=== PATIENT | male | born 1945 | race African-American/Black ===

== ENCOUNTER 2016-07-03 17:21 | Emergency (ER) | payer MEDICARE ==
[~2016-07-03] VITALS: Ht 167.6 cm; Wt 78.0 kg
[~2016-07-03 17:21] MED LIST: HYDR-971 PO; IBUP200T43 PO; LEVO500T38 PO
--- NOTE | 2016-07-03 17:26 | PHYS DOC ---
Past Medical History Past Medical History: Diabetes-Type II, Hypertension Past Surgical History: Other Additional Past Surgical Histo: LEFT ARM Alcohol Use: None Drug Use: None Adult General Chief Complaint Chief Complaint: HEADACHE HPI HPI Patient is a 71 year old male presenting to the emergency department for evaluation of sharp shooting headache that has been going on for the past 3-4 days. Patient says that the pain starts in his right occipital area and feels like an electric shock shooting forward to his post auricular area. He says the pain is intense and can make him feel like he needs to sit down but he denies any vision changes or nausea vomiting fevers chills unilateral weakness numbness tingling or change in his gait. Patient is pain-free in between episodes he says that he is pain-free currently. Review of Systems Review of Systems Constitutional: Denies fever or chills [] Eyes: Denies change in visual acuity, redness, or eye pain [] HENT: Denies nasal congestion or sore throat [] Respiratory: Denies cough or shortness of breath [] Cardiovascular: No additional information not addressed in HPI [] GI: Denies abdominal pain, nausea, vomiting, bloody stools or diarrhea [] : Denies dysuria or hematuria [] Musculoskeletal: Denies back pain or joint pain [] Integument: Denies rash or skin lesions [] Neurologic: + headache. No focal weakness or sensory changes [] Current Medications Current Medications Current Medications Medications (Trade) Dose Ordered Sig/Francesco Start Time Stop Time Status Last Admin Dose Admin Dexamethasone Sodium Phosphate (Decadron) 10 mg 1X ONCE 07/03/16 18:30 07/03/16 18:31 DC 07/03/16 18:34 10 MG Ketorolac Tromethamine (Toradol) 30 mg 1X ONCE 07/03/16 18:30 07/03/16 18:31 DC 07/03/16 18:38 30 MG Allergies Allergies Allergies Coded Allergies Type Severity Reaction Last Updated Verified No Known Drug Allergies 06/21/15 No Physical Exam Physical Exam Constitutional: Well developed, well nourished, no acute distress, non-toxic appearance. [] HENT: Normocephalic, atraumatic, bilateral external ears normal, oropharynx moist, no oral exudates, nose normal. Pain is reproducible at his right occipital area and I palpate pain up to his post auricular area. No obvious rash or deformity noted. Eyes: PERRLA, EOMI, conjunctiva normal, no discharge. [] Neck: Normal range of motion, no tenderness, supple, no stridor. [] Cardiovascular:Heart rate regular rhythm, no murmur [] Lungs & Thorax: Bilateral breath sounds clear to auscultation [] Abdomen: Bowel sounds normal, soft, no tenderness, no masses, no pulsatile masses. [] Skin: Warm, dry, no erythema, no rash. [] Back: No tenderness, no CVA tenderness. [] Extremities: No tenderness, no cyanosis, no clubbing, ROM intact, no edema. [] Neurologic: Alert and oriented X 3, normal motor function, normal sensory function, no focal deficits noted. [] Current Patient Data Vital Signs Vital Signs Date Time Temp Pulse Resp B/P Pulse Ox O2 Delivery O2 Flow Rate FiO2 07/03/16 18:29 90 140/77 95 Room Air 07/03/16 17:22 98.7 18 98.7 Lab Values Laboratory Tests Test 07/03/16 17:40 White Blood Count 6.7x10^3/uL (4.0-11.0) Red Blood Count 4.26x10^6/uL (4.30-5.70) L Hemoglobin 12.5g/dL (13.0-17.5) L Hematocrit 37.8% (39.0-53.0) L Mean Corpuscular Volume 89fL (79-100) Mean Corpuscular Hemoglobin 29pg (25-35) Mean Corpuscular Hemoglobin Concent 33g/dL (31-37) Red Cell Distribution Width 14.7% (11.5-14.5) H Platelet Count 228x10^3/uL (140-400) Neutrophils (%) (Auto) 79% (31-73) H Lymphocytes (%) (Auto) 13% (24-48) L Monocytes (%) (Auto) 7% (0-9) Eosinophils (%) (Auto) 1% (0-3) Basophils (%) (Auto) 1% (0-3) Neutrophils # (Auto) 5.3x10^3uL (1.8-7.7) Lymphocytes # (Auto) 0.9x10^3/uL (1.0-4.8) L Monocytes # (Auto) 0.5x10^3/uL (0.0-1.1) Eosinophils # (Auto) 0.0x10^3/uL (0.0-0.7) Basophils # (Auto) 0.0x10^3/uL (0.0-0.2) Erythrocyte Sedimentation Rate 60 (0-15) H Sodium Level 137mmol/L (136-145) Potassium Level 3.7mmol/L (3.5-5.1) Chloride Level 103mmol/L (98-107) Carbon Dioxide Level 25mmol/L (21-32) Anion Gap 9 (6-14) Blood Urea Nitrogen 21mg/dL (8-26) Creatinine 1.3mg/dL (0.7-1.3) Estimated GFR (Cockcroft-Gault) 66.0 BUN/Creatinine Ratio 16 (6-20) Glucose Level 176mg/dL (70-99) H Calcium Level 8.7mg/dL (8.5-10.1) Total Bilirubin 0.3mg/dL (0.2-1.0) Aspartate Amino Transferase (AST) 14U/L (15-37) L Alanine Aminotransferase (ALT) 19U/L (16-63) Alkaline Phosphatase 70U/L (46-116) C-Reactive Protein, Quantitative 25.0mg/L (0-3.3) H Total Protein 7.3g/dL (6.4-8.2) Albumin 3.0g/dL (3.4-5.0) L Albumin/Globulin Ratio 0.7 (1.0-1.7) L Laboratory Tests 07/03/16 17:40 Laboratory Tests 07/03/16 17:40 EKG EKG [] Radiology/Procedures Radiology/Procedures PROCEDURE CT head without intravenous contrast. HISTORY Right occipital mastoid headache. TECHNIQUE Axial images are obtained of the head from the skull base through the vertex without IV contrast Exposure: One or more of the following individualized dose reduction techniques were utilized for this examination: 1. Automated exposure control. 2. Adjustment of the mA and/or kV according to patient size. 3. Use of iterative reconstruction technique. COMPARISON None. FINDINGS The ventricles are appropriate in size, shape, and location for the patient's age.No obvious intracranial mass, mass-effect, midline shift, hemorrhage or obvious acute infarction is identified.Basilar cisterns are patent. Bone windows demonstrate no acute calvarial abnormality.The visualized paranasal sinuses appear clear. Mastoid air cells appear clear. IMPRESSION No acute intracranial process. Please note that CT can be relatively insensitive to acute ischemic infarction for up to 24 hours after symptom onset. Electronically signed by: Oscar Garcia MD (Jul 03, 2016 18:34:39) DICTATED and SIGNED BY: OSCAR GARCIA MD DATE: 07/03/161833 Course & Med Decision Making Course & Med Decision Making Patient with nonspecific headache that is most likely some sort of neuropathic type pain given the description of sharp shooting pain that radiates comes and goes and lasts for seconds at a time. Patient's CRP is elevated significantly likely some sort of inflammatory process. CT is negative and he has no neck stiffness fevers chills photophobia vision changes. I do not think this is temporal arteritis as he has no pain over his temples. Patient was given a dose of Decadron and Toradol in the emergency department he had no headache during his entire time in the emergency department. I will start him on a dose of gabapentin and then have him follow with the neurologist and have him come back to the ER sooner with any worsening pain fevers vomiting or vaginal concerns. Patient aware and agreeable with plan for discharge and verbalized understanding of the above instructions. Dragon Disclaimer Dragon Disclaimer This electronic medical record was generated, in whole or in part, using a voice recognition dictation system. Departure Departure Impression: Primary Impression: Headache Additional Impression: Neuropathic pain Disposition: 01 HOME, SELF-CARE Condition: GOOD Referrals: VALENTINO RDZ MD Patient Instructions: General Headache Without Cause Additional Instructions: You can take 400 mg of ibuprofen every 6 hours for headache. The Patient should be dosed that she take one pill on day one and 2 pills on day 2 and 3 pills on day 3 and then 3 forward. He should follow with a neurologist as soon as possible and come back to the ER sooner with any worsening pain or fevers or vomiting or general concerns. Scripts Hydrocodone/Apap 5-325 (Kre[place] 5-325 Tablet)1 Each Tablet1 Tab PO PRN Q6HRS PRN PAIN #14 TAB Ref 0 Prov:JOSTIN MELENDREZ DO 07/03/16 Gabapentin 300 Mg [id number] Mg PO TID #90 CAP Prov:JOSTIN MELENDREZ DO 07/03/16 Problem Qualifiers Primary Impression: Headache Headache type: unspecified Headache chronicity pattern: acute headache Intractability: not intractable Qualified Code: R51 - Headache JOSTIN MELENDREZ DO Jul 03, 2016 17:26
[2016-07-03 17:51] LABS: BASO % 1 % (0-3); EOS % 1 % (0-3); HEMATOCRIT 37.8 % (39.0-53.0); HEMOGLOBIN 12.5 g/dL (13.0-17.5); LYMPH # 0.9 x10^3/uL (1.0-4.8); LYMPH % 13 % (24-48); MEAN CORPUSCULAR HEMOGLOBIN 29 pg (25-35); MEAN CORPUSCULAR HGB CONC 33 g/dL (31-37); MEAN CORPUSCULAR VOLUME 89 fL (79-100); MONO % 7 % (0-9); NEUT % 79 % (31-73); PLATELET COUNT 228 x10^3/uL (140-400); RED BLOOD COUNT 4.26 x10^6/uL (4.30-5.70); RED CELL DISTRIBUTION WIDTH 14.7 % (11.5-14.5); WHITE BLOOD COUNT 6.7 x10^3/uL (4.0-11.0)
[2016-07-03 18:05] LABS: CALCIUM 8.7 mg/dL (8.5-10.1); CREATININE 1.3 mg/dL (0.7-1.3); POTASSIUM 3.7 mmol/L (3.5-5.1)
[2016-07-03 18:10] LABS: ALBUMIN/GLOBULIN RATIO 0.7 (1.0-1.7); TOTAL BILIRUBIN 0.3 mg/dL (0.2-1.0); TOTAL PROTEIN 7.3 g/dL (6.4-8.2)
[2016-07-03 18:29] VITALS: BP 140/77
[2016-07-03] MEDS ORDERED: KETOROLAC TROMETHAMINE 30 MG/ML INJ. IV ONE (18:30)
[2016-07-03] MEDS ORDERED: DEXAMETHASONE SOD PHOS 20 MG/5 ML VIAL. IV ONE (18:30)
--- NOTE | 2016-07-03 18:36 | RAD ---
PROCEDURE CT head without intravenous contrast. HISTORY Right occipital mastoid headache. TECHNIQUE Axial images are obtained of the head from the skull base through the vertex without IV contrast Exposure: One or more of the following individualized dose reduction techniques were utilized for this examination: 1. Automated exposure control. 2. Adjustment of the mA and/or kV according to patient size. 3. Use of iterative reconstruction technique. COMPARISON None. FINDINGS The ventricles are appropriate in size, shape, and location for the patient's age.No obvious intracranial mass, mass-effect, midline shift, hemorrhage or obvious acute infarction is identified.Basilar cisterns are patent. Bone windows demonstrate no acute calvarial abnormality.The visualized paranasal sinuses appear clear. Mastoid air cells appear clear. IMPRESSION No acute intracranial process. Please note that CT can be relatively insensitive to acute ischemic infarction for up to 24 hours after symptom onset. Electronically signed by: Oscar Garcia MD (Jul 03, 2016 18:34:39)
[2016-07-03] MEDS ORDERED: HYDR-971 PO (18:48)
[2016-07-03] MEDS ORDERED: GABA-586 PO (18:48)
== END 2016-07-03 18:58 | disposition home or self-care (01) ==
LOC: ER 17:21
DX: R51 Headache (principal); G58.8 Other specified mononeuropathies; E11.9 Type 2 diabetes mellitus without complications; I10 Essential (primary) hypertension
CPT/HCPCS: 36415; 70450; 80053; 85027; 85651; 86140; 96374; 96375; 99285; J1100; J1885

== ENCOUNTER → 2016-07-20 | Outpatient (CLI) | payer MEDICARE ==
[2016-07-03 18:29] VITALS: BP 140/77
[~2016-07-20] MED LIST changes: +GABA-586 PO
[2016-07-21 12:16] LABS: BARBITURATES NEG (NEG); BENZODIAZEPINES NEG (NEG); CANNABINOIDS NEG (NEG); COCAINE NEG (NEG); METHADONE NEG (NEG); OPIATES NEG (NEG); PHENCYCLIDINE NEG (NEG)
== END | disposition home or self-care (01) ==
LOC: LAB 16:41
PROVIDERS: ATTEND Psychiatry & Neurology Neurology
DX: R51 Headache (principal)
CPT/HCPCS: 36415; 85651; G0481

== ENCOUNTER → 2016-08-18 | Outpatient (CLI) | payer MEDICARE ==
[~2016-08-18] MED LIST changes: -LEVO500T38 PO; +LEVO500T59 PO
[2016-08-19 04:21] LABS: RHEUMATOID FACTOR 26.3 IU/mL (0.0-13.9)
== END | disposition home or self-care (01) ==
LOC: LAB 15:00
PROVIDERS: ATTEND Psychiatry & Neurology Neurology
DX: R51 Headache (principal)
CPT/HCPCS: 36415; 86141; 86431

== ENCOUNTER → 2016-12-02 | Outpatient (CLI) | payer MEDICARE ==
[~2016-12-02] MED LIST changes: +CIPR500T PO; +IBUP-1060 PO; -IBUP200T43 PO; +IBUP200T44 PO
--- NOTE | 2016-12-02 12:02 | RAD ---
EXAM: CT cervical spine without contrast. HISTORY: Neck pain. TECHNIQUE: Computed tomography of the cervical spine was performed without intravenous contrast. COMPARISON: None. FINDINGS: Alignment is maintained. There is mild osteoarthritis at C1-2. No fractures are identified. Degenerative disc disease is mild to moderate from C4 through C6 and mild at C3-4 and C6-7. There is no prevertebral soft tissue swelling. At C2-3, there is a small posterior disc bulge. Uncovertebral osteoarthritis is mild on the right greater than left. Right foraminal stenosis is mild. At C3-4, there is a moderate posterior disc bulge. Uncovertebral osteoarthritis is moderate on the left greater than right. Foraminal stenosis is moderate on the left and mild on the right. At C4-5, there is a moderate posterior disc-osteophyte complex. Central canal stenosis is at least mild. Uncovertebral osteoarthritis is moderate to severe on the right greater than left. Foraminal stenosis is moderate to severe on the right and moderate on the left. At C5-6, there is a small posterior disc-osteophyte complex. Central canal stenosis appears mild. Uncovertebral osteoarthritis is moderate to severe on the right greater than left. Foraminal stenosis is moderate to severe on the right and moderate on left. At C6-7, uncovertebral osteoarthritis is moderate to severe on the left. Foraminal stenosis is moderate on the left. IMPRESSION: 1. 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 Central canal stenosis is at least mild from C4 through C6. MRI could further assess stenosis if there is persistent concern. 2. Degenerative disc disease is mild to moderate from C4 through C6 and mild at C3-4 and C6-7. *One or more of the following individualized dose reduction techniques were utilized for this examination: 1. Automated exposure control. 2. Adjustment of the mA and/or kV according to patient size. 3. Use of iterative reconstruction technique.
== END | disposition home or self-care (01) ==
LOC: CT 10:31
PROVIDERS: ATTEND Psychiatry & Neurology Neurology
DX: M48.02 Spinal stenosis, cervical region (principal); M47.892 Other spondylosis, cervical region; M50.323 Other cervical disc degeneration at C6-C7 level; M50.122 Cervical disc disorder at C5-C6 level with radiculopathy; M50.121 Cervical disc disorder at C4-C5 level with radiculopathy
CPT/HCPCS: 72125

== ENCOUNTER 2016-12-07 10:35 | Emergency (ER) | payer MEDICARE ==
[~2016-12-07] VITALS: Ht 170.2 cm; Wt 78.9 kg
[~2016-12-07 10:35] MED LIST changes: -CIPR500T PO; -IBUP-1060 PO
--- NOTE | 2016-12-07 11:01 | PHYS DOC ---
Past Medical History Past Medical History: Diabetes-Type II, Hypertension Past Surgical History: Other Additional Past Surgical Histo: LEFT ARM Alcohol Use: None Drug Use: None Adult General Chief Complaint Chief Complaint: TESTICULAR PAIN OR INJURY HPI HPI Patient is a 71 year old male presents the ED complaining of left testicular swelling 4 days. States he had a previous episode of testicular swelling a few years ago that resolved after treatment. Describes the pain as sharp. Rates the pain as 8 out of 10. Denies dysuria, hematuria, penile discharge, STD exposure, abdominal pain, nausea/vomiting, dizziness, weakness, chest pain or shortness of breath. Review of Systems Review of Systems Constitutional: Denies fever or chills [] Eyes: Denies change in visual acuity, redness, or eye pain [] HENT: Denies nasal congestion or sore throat [] Respiratory: Denies cough or shortness of breath [] Cardiovascular: No additional information not addressed in HPI [] GI: Denies abdominal pain, nausea, vomiting, bloody stools or diarrhea [] : Denies dysuria or hematuria [] Musculoskeletal: Denies back pain or joint pain [] Integument: Denies rash or skin lesions [] Neurologic: Denies headache, focal weakness or sensory changes [] Endocrine: Denies polyuria or polydipsia [] Current Medications Current Medications Current Medications Medications (Trade) Dose Ordered Sig/Francesco Start Time Stop Time Status Last Admin Dose Admin Ceftriaxone Sodium 50 ml @ 100 mls/hr 1X ONCE 12/07/16 12:15 12/07/16 12:42 DC 12/07/16 12:06 100 MLS/HR Morphine Sulfate 2 mg 1X ONCE 12/07/16 11:15 12/07/16 11:16 DC 12/07/16 11:23 2 MG Ondansetron HCl (Zofran) 4 mg 1X ONCE 12/07/16 11:15 12/07/16 11:16 DC 12/07/16 11:23 4 MG Potassium Chloride (Klor-Con) 40 meq 1X ONCE 12/07/16 12:15 12/07/16 12:16 DC 12/07/16 12:07 40 MEQ Allergies Allergies Allergies Coded Allergies Type Severity Reaction Last Updated Verified No Known Drug Allergies 06/21/15 No Physical Exam Physical Exam Constitutional: Well developed, well nourished, no acute distress, non-toxic appearance. [] HENT: Normocephalic, atraumatic, bilateral external ears normal, oropharynx moist, no oral exudates, nose normal. [] Eyes: PERRLA, EOMI, conjunctiva normal, no discharge. [] Neck: Normal range of motion, no tenderness, supple, no stridor. [] Cardiovascular:Heart rate regular rhythm, no murmur [] Lungs & Thorax: Bilateral breath sounds clear to auscultation [] Abdomen: Bowel sounds normal, soft, no tenderness, no masses, no pulsatile masses. : LEFT SCROTAL SWELLING AND LEFT TESTICULAR TENDERNESS. [] Skin: Warm, dry, no erythema, no rash. [] Back: No tenderness, no CVA tenderness. [] Extremities: No tenderness, no cyanosis, no clubbing, ROM intact, no edema. [] Neurologic: Alert and oriented X 3, normal motor function, normal sensory function, no focal deficits noted. [] Psychologic: Affect normal, judgement normal, mood normal. [] Current Patient Data Vital Signs Vital Signs Date Time Temp Pulse Resp B/P (MAP) Pulse Ox O2 Delivery O2 Flow Rate FiO2 12/07/16 12:10 80 20 109/47 (67) 100 12/07/16 10:49 97.7 Room Air 97.7 Lab Values Laboratory Tests Test 12/07/16 11:00 12/07/16 11:20 Urine Collection Type Unknown Urine Color Yellow Urine Clarity Clear Urine pH 6.0 Urine Specific [place] 1.020 Urine Protein Negative mg/dL (NEG-TRACE) Urine Glucose (UA) Negative mg/dL (NEG) Urine Ketones (Stick) Negative mg/dL (NEG) Urine Blood Negative (NEG) Urine Nitrite Positive (NEG) Urine Bilirubin Negative (NEG) Urine Urobilinogen Dipstick 1.0 mg/dL (0.2 mg/dL) Urine Leukocyte Esterase Large (NEG) Urine RBC Occ /HPF (0-2) Urine WBC >40 /HPF (0-4) Urine Squamous Epithelial Cells Few /LPF Urine Bacteria Mod /HPF (0-FEW) Urine Mucus /LPF White Blood Count 4.3 x10^3/uL (4.0-11.0) Red Blood Count 4.26 x10^6/uL (4.30-5.70) L Hemoglobin 12.5 g/dL (13.0-17.5) L Hematocrit 37.3 % (39.0-53.0) L Mean Corpuscular Volume 87 fL (79-100) Mean Corpuscular Hemoglobin 29 pg (25-35) Mean Corpuscular Hemoglobin Concent 33 g/dL (31-37) Red Cell Distribution Width 14.0 % (11.5-14.5) Platelet Count 245 x10^3/uL (140-400) Sodium Level 140 mmol/L (136-145) Potassium Level 3.1 mmol/L (3.5-5.1) L Chloride Level 104 mmol/L (98-107) Carbon Dioxide Level 30 mmol/L (21-32) Anion Gap 6 (6-14) Blood Urea Nitrogen 18 mg/dL (8-26) Creatinine 1.0 mg/dL (0.7-1.3) Estimated GFR (Cockcroft-Gault) 89.4 BUN/Creatinine Ratio 18 (6-20) Glucose Level 56 mg/dL (70-99) L Calcium Level 8.6 mg/dL (8.5-10.1) Total Bilirubin 0.3 mg/dL (0.2-1.0) Aspartate Amino Transferase (AST) 17 U/L (15-37) Alanine Aminotransferase (ALT) 24 U/L (16-63) Alkaline Phosphatase 69 U/L (46-116) Total Protein 7.4 g/dL (6.4-8.2) Albumin 3.1 g/dL (3.4-5.0) L Albumin/Globulin Ratio 0.7 (1.0-1.7) L Laboratory Tests 12/07/16 11:20 Laboratory Tests 12/07/16 11:20 EKG EKG [] Radiology/Procedures Radiology/Procedures PROCEDURE: TESTICULAR/SCROTUM Scrotal ultrasound, 12/07/2016: History: Left testicular pain and swelling The right testicle measures 5.0 x 2.6 x 2.1 cm while the left testicle measures 4.3 x 2.9 x 2.5 cm. There is symmetric blood flow within the testicles. No testicular mass is seen. Several small epididymal cysts are noted on the left. The largest of these measures 6 mm. The right epididymis is unremarkable. There are small bilateral hydroceles, left larger than right. There is a small amount of echogenic debris within the hydroceles. IMPRESSION: 1. No testicular abnormality is detected. 2. Small left epididymal cyst. 3. Small bilateral hydroceles.[] Course & Med Decision Making Course & Med Decision Making Pertinent Labs and Imaging studies reviewed. (See chart for details) []Discussed labs and imaging with patient. Patient's pain improved. Vital stable , no acute distress. Patient treated with Rocephin in ED. Will treat outpatient with Cipro and Candler which he has been treated with in the past. Discussed follow-up with patient. Discussed reasons to return to the ED. Patient understands and agrees with plan. Dragon Disclaimer Dragon Disclaimer This electronic medical record was generated, in whole or in part, using a voice recognition dictation system. Departure Departure Impression: Primary Impression: Urinary tract infection Disposition: 01 HOME, SELF-CARE Condition: STABLE Referrals: UNKNOWN PCP NAME (PCP) LÁZARO ERAZO MD Patient Instructions: Epididymitis, Urinary Tract Infection Scripts Ibuprofen (IBUPROFEN) 800 Mg Tablet 800 MG PO PRN Q6HRS Y for INFLAMMATION, #20 TAB Prov: MARIZA VÁZQUEZ 12/07/16 Hydrocodone/Apap 5-325 (NORCO 5-325 TABLET) 1 Each Tablet 1 TAB PO TID, #8 TAB Prov: MARIZA VÁZQUEZ 12/07/16 Ciprofloxacin Hcl (CIPROFLOXACIN HCL) 500 Mg Tablet 1 TAB PO BID, #20 TAB Prov: MARIZA VÁZQUEZ 12/07/16 MARIZA VÁZQUEZ Dec 07, 2016 11:01
[2016-12-07] MEDS ORDERED: MORPHINE SULFATE 4 MG/ML DISP.SYRIN. IV ONE (11:15)
[2016-12-07] MEDS ORDERED: ONDANSETRON PF 4 MG/2 ML VIAL. IV ONE (11:15)
[2016-12-07 11:22] LABS: BILIRUBIN,URINE NEGATIVE (NEG); GLUCOSE,URINE NEGATIVE (NEG); NITRITE,URINE POSITIVE (NEG); PROTEIN,URINE NEGATIVE (NEG-TRACE)
[2016-12-07 11:23] LABS: HEMATOCRIT 37.3 % (39.0-53.0); HEMOGLOBIN 12.5 g/dL (13.0-17.5); RED BLOOD COUNT 4.26 x10^6/uL (4.30-5.70); WHITE BLOOD COUNT 4.3 x10^3/uL (4.0-11.0)
--- NOTE | 2016-12-07 11:27 | RAD ---
Scrotal ultrasound, 12/07/2016: History: Left testicular pain and swelling The right testicle measures 5.0 x 2.6 x 2.1 cm while the left testicle measures 4.3 x 2.9 x 2.5 cm. There is symmetric blood flow within the testicles. No testicular mass is seen. Several small epididymal cysts are noted on the left. The largest of these measures 6 mm. The right epididymis is unremarkable. There are small bilateral hydroceles, left larger than right. There is a small amount of echogenic debris within the hydroceles. IMPRESSION: 1. No testicular abnormality is detected. 2. Small left epididymal cyst. 3. Small bilateral hydroceles.
[2016-12-07 11:33] LABS: CALCIUM 8.6 mg/dL (8.5-10.1); GFR 89.4; POTASSIUM 3.1 mmol/L (3.5-5.1)
[2016-12-07 11:34] LABS: RBC,URINE OCC /HPF (0-2); SQUAMOUS EPITHELIAL CELL,UR FEW /LPF; WBC,URINE >40 /HPF (0-4)
[2016-12-07 11:35] LABS: BACTERIA,URINE MOD /HPF (0-FEW)
[2016-12-07 11:41] LABS: ALBUMIN 3.1 g/dL (3.4-5.0); ALBUMIN/GLOBULIN RATIO 0.7 (1.0-1.7); TOTAL BILIRUBIN 0.3 mg/dL (0.2-1.0); TOTAL PROTEIN 7.4 g/dL (6.4-8.2)
[2016-12-07] MEDS ORDERED: CIPR500T PO (12:00)
[2016-12-07] MEDS ORDERED: HYDR-971 PO (12:07)
[2016-12-07] MEDS ORDERED: IBUP-1060 PO (12:07)
[2016-12-07 12:10] VITALS: BP 109/47
[2016-12-07] MEDS ORDERED: POTASSIUM CHLORIDE 20 MEQ TABLET.ER. PO ONE (12:15)
== END 2016-12-07 12:42 | disposition home or self-care (01) ==
LOC: ER 10:35
DX: N39.0 Urinary tract infection, site not specified (principal); N43.3 Hydrocele, unspecified; N50.3 Cyst of epididymis; I10 Essential (primary) hypertension; E11.9 Type 2 diabetes mellitus without complications
CPT/HCPCS: 36415; 76870; 80053; 81001; 85027; 96365; 96375; 99285; J0690; J2270; J2405

== ENCOUNTER → 2017-09-14 | Outpatient (CLI) | payer MEDICARE ==
[2017-09-14 11:56] LABS: CREATINE KINASE 169 U/L (39-308)
[2017-09-14 12:04] LABS: THYROID STIM HORMONE (TSH) 0.877 uIU/mL (0.358-3.74)
[2017-09-14 12:26] LABS: VITAMIN-B12 542 pg/mL (247-911)
== END | disposition home or self-care (01) ==
LOC: LAB 11:11
DX: G56.03 Carpal tunnel syndrome, bilateral upper limbs (principal); I10 Essential (primary) hypertension; E11.9 Type 2 diabetes mellitus without complications
CPT/HCPCS: 36415; 82550; 82607; 84443

== ENCOUNTER 2019-03-14 09:11 | Emergency (ER) | payer MEDICARE ==
[~2019-03-14] VITALS: Ht 167.6 cm; Wt 78.9 kg
[~2019-03-14 09:11] MED LIST changes: +CIPR500T PO; -GABA-586 PO; +GABA300C18 PO; +HYDR-3164 PO; -HYDR-971 PO; +IBUP-1060 PO
[2019-03-14 09:40] VITALS: BP 122/70
[2019-03-14] MEDS ORDERED: DIPHTH,PERTUSS(ACELL),TET TOX 0.5 ML DISP.SYRIN. VAX IM ONE (10:00)
--- NOTE | 2019-03-14 10:05 | PHYS DOC ---
Past Medical History Past Medical History: Diabetes-Type II, Hypertension Past Surgical History: Other Additional Past Surgical Histo: LEFT ARM Alcohol Use: None Drug Use: None Adult General Chief Complaint Chief Complaint: LACERATION/AVULSION HPI HPI Patient is a 74 year old AA male who presents to the emergency department with complaints of a laceration to his right thumb. Patient states he was opening a can of dog food when he accidentally cut his right thumb. He does not know when his last tetanus shot was. He denies any numbness, tingling, weakness, or pain of the affected area. All other ROS is neg unless otherwise noted in HPI. Review of Systems Review of Systems See Above Current Medications Current Medications Current Medications Medications (Trade) Dose Ordered Sig/Francesco Start Time Stop Time Status Last Admin Dose Admin Diphtheria/ Tetanus/Acell Pertussis (Boostrix) 0.5 ml ONCE ONCE 03/14/19 10:00 03/14/19 10:01 Allergies Allergies Allergies Coded Allergies Type Severity Reaction Last Updated Verified No Known Drug Allergies 06/21/15 No Physical Exam Physical Exam See Above Constitutional: Well developed, well nourished, no acute distress, non-toxic appearance. [] HENT: Normocephalic, atraumatic, bilateral external ears normal, nose normal. [] Eyes: PERRLA, EOMI, conjunctiva normal, no discharge. [] Neck: Normal range of motion, no stridor. [] Cardiovascular:Heart rate regular rhythm Lungs & Thorax: Respirations even and unlabored, no retractions, no respiratory distress Skin: Warm, dry, no erythema, no rash; 0.5 cm v-shaped superficial laceration noted to palmar surface of R thumb, no active bleeding, no visible FB. [] Extremities: No tenderness, no cyanosis, ROM intact, no edema. [] Neurologic: Alert and oriented X 3, no focal deficits noted. [] Psychologic: Affect normal, judgement normal, mood normal. [] Current Patient Data Vital Signs Vital Signs Date Time Temp Pulse Resp B/P (MAP) Pulse Ox O2 Delivery O2 Flow Rate FiO2 03/14/19 09:40 98.6 85 16 122/70 (87) 98 Room Air 98.6 EKG EKG [] Radiology/Procedures Radiology/Procedures [] Course & Med Decision Making Course & Med Decision Making Pertinent Labs and Imaging studies reviewed. (See chart for details) [] Dragon Disclaimer Dragon Disclaimer This electronic medical record was generated, in whole or in part, using a voice recognition dictation system. Departure Departure Impression: Primary Impression: Laceration of right thumb without foreign body without damage to nail Additional Impression: Need for Tdap vaccination Disposition: 01 HOME, SELF-CARE Condition: STABLE Referrals: UNKNOWN PCP NAME (PCP) Patient Instructions: Laceration Care, Adult, [id number], VIS, Tetanus, Diphtheria (Td); Tetanus, Diphtheria, Pertussis (Tdap) - CDC Additional Instructions: Keep the area clean and dry. You may take Tylenol or ibuprofen as needed for pain. Change the dressing twice a day and apply antibiotic ointment to the area. Follow-up with your primary care doctor, or return to the emergency room if you develop signs of infection including: redness, warmth, drainage, or a fever. Problem Qualifiers Primary Impression: Laceration of right thumb without foreign body without damage to nail Encounter type: initial encounter Qualified Codes: S61.011A - Laceration without foreign body of right thumb without damage to nail, initial encounter BEATRIZ ANGUIANO [employer]NAG[employer] ARCHITECT Mar 14, 2019 10:05
== END 2019-03-14 10:15 | disposition home or self-care (01) ==
LOC: ER 09:11
DX: S61.011A Laceration without foreign body of right thumb without damage to nail, initial encounter (principal); E11.9 Type 2 diabetes mellitus without complications; I10 Essential (primary) hypertension; Z98.890 Other specified postprocedural states; Y28.8XXA Contact with other sharp object, undetermined intent, initial encounter; Y93.89 Activity, other specified; Y92.89 Other specified places as the place of occurrence of the external cause; Y99.8 Other external cause status
CPT/HCPCS: 90471; 90715; 99283

== ENCOUNTER 2019-05-18 18:40 | Emergency (ER) | payer MEDICARE ==
[~2019-05-18] VITALS: Ht 167.6 cm; Wt 85.5 kg
[2019-05-18 19:11] VITALS: BP 165/94
[2019-05-18] MEDS ORDERED: HYDR-2761 PO (19:36)
[2019-05-18] MEDS ORDERED: VALA10008 PO (19:36)
--- NOTE | 2019-05-18 19:36 | PHYS DOC ---
Past Medical History Past Medical History: Diabetes-Type II, Hypertension (BEATRIZ ANGUIANO APRN) Past Surgical History: Other Additional Past Surgical Histo: LEFT ARM (BEATRIZ ANGUIANO APRN) Smoking Status: Never Smoker Alcohol Use: None Drug Use: None (BEATRIZ ANGUIANO APRN) Attending Signature I have participated in the care of this patient and I have reviewed and agree with all pertinent clinical information above including history, exam, and recommendations. (ANN KATZ MD) Adult General Chief Complaint Chief Complaint: SKIN RASH/ABSCESS HPI HPI Patient is a 74 year old AA male who presents to the emergency department with complaints of a rash that is developed on his left mid back wrapping around to h is left chest that began just a few hours prior to arrival. Patient states that first the rash felt tingly and kind of itched. He denies any discomfort at this time. Patient denies any recent exposure to anyone with shingles. He denies any fever, cough, shortness of breath, nausea, vomiting, diarrhea, abdominal pain, body aches, or fatigue. The patient currently denies any pain. (BEATRIZ ANGUIANO APRN) Review of Systems Review of Systems Complete ROS is negative unless otherwise noted in HPI. (BEATRIZ ANGUIANO APRN) Allergies Allergies Allergies Coded Allergies Type Severity Reaction Last Updated Verified No Known Drug Allergies 06/21/15 No (ANN KATZ MD) Physical Exam Physical Exam See Above Constitutional: Well developed, well nourished, no acute distress, non-toxic appearance. [] HENT: Normocephalic, atraumatic, bilateral external ears normal, nose normal. [] Eyes: PERRLA, EOMI, conjunctiva normal, no discharge. [] Neck: Normal range of motion, no stridor. [] Cardiovascular:Heart rate regular rhythm Lungs & Thorax: Respirations even and unlabored, no retractions, no respiratory distress Skin: Warm, dry; vesicular rash noted to the left mid back wrapping around to the front left chest consistent with shingles, patient reports pain with palpation. Back: No bony tenderness Extremities: No cyanosis, ROM intact Neurologic: Alert and oriented X 3, no focal deficits noted. [] Psychologic: Affect normal, judgement normal, mood normal. [] (BEATRIZ ANGUIANO APRN) Current Patient Data Vital Signs Vital Signs Date Time Temp Pulse Resp B/P (MAP) Pulse Ox O2 Delivery O2 Flow Rate FiO2 05/18/19 19:11 97.9 68 19 165/94 (117) 97 Room Air 97.9 (ANN KATZ MD) EKG EKG [] (BEATRIZ ANGUIANO APRN) Radiology/Procedures Radiology/Procedures [] (BEATRIZ ANGUIANO APRN) Course & Med Decision Making Course & Med Decision Making Pertinent Labs and Imaging studies reviewed. (See chart for details) [] (BEATRIZ ANGUIANO APRN) Dragon Disclaimer Dragon Disclaimer This electronic medical record was generated, in whole or in part, using a voice recognition dictation system. (BEATRIZ ANGUIANO APRN) Departure Departure Impression: Primary Impression: Shingles Disposition: HOME, SELF-CARE Condition: STABLE Referrals: UNKNOWN PCP NAME (PCP) Patient Instructions: Shingles, Zifn-yl-Gwuq Scripts Hydrocodone Bit/Acetaminophen (HYDROCODONE-APAP 5-325 ) 1 Tab Tablet 1 TAB PO PRN Q6HRS PRN for PAIN for 3 Days, #10 TAB 0 Refills Prov: BEATRIZ ANGUIANO APRN 05/18/19 Valacyclovir Hcl (VALACYCLOVIR) 1,000 Mg Tablet 1 TAB PO TID for 7 Days, #21 TAB 0 Refills Prov: BEATRIZ ANGUIANO APRN 05/18/19 Problem Qualifiers Primary Impression: Shingles Herpes zoster complications: without complications Qualified Codes: B02.9 - Zoster without complications BEATRIZ ANGUIANO APRN May 18, 2019 19:36 ANN KATZ MD May 18, 2019 21:42
== END 2019-05-18 19:52 | disposition home or self-care (01) ==
LOC: ER 18:40
DX: B02.9 Zoster without complications (principal); I10 Essential (primary) hypertension; E11.9 Type 2 diabetes mellitus without complications
CPT/HCPCS: 99283

== ENCOUNTER 2020-09-14 16:45 | Emergency (ER) | payer MEDICARE ==
[~2020-09-14] VITALS: Ht 167.6 cm; Wt 75.0 kg
[~2020-09-14 16:45] MED LIST changes: -CIPR500T PO; +CIPR500T2 PO; +HYDR-2761 PO; +VALA10008 PO
[2020-09-14] MEDS ORDERED: HYDR-2759 PO (20:59)
[2020-09-14] MEDS ORDERED: CYCL10TA2 PO (20:59)
--- NOTE | 2020-09-14 21:00 | PHYS DOC ---
Past Medical History Past Medical History: Diabetes-Type II, Hypertension (MARIANA ZHU DO) Past Surgical History: Other Additional Past Surgical Histo: LEFT ARM (MARIANA ZHU DO) Smoking Status: Never Smoker Alcohol Use: None Drug Use: None (MARIANA ZHU DO) General Adult EDM: Chief Complaint: FLANK PAIN HPI: HPI: Patient is a 75 year oldquw-iqhd-fau male with past medical history hypertension diabetes presents with a chief complaint of right lower back pain. Patient states 1 week ago he was at [employer] move a table. Patient states shortly after he started experience right lower back pain. Patient's pain was exacerbated with movement twisting and turning and bending and relieved with rest. Patient states due to pain he has had difficulty moving and in particular getting up out of bed. He denies any loss of bowel or bladder or saddle anesthesia. He has not taken any lkij-zts-rcgbavt pain relief medications. Patient has used heating pads with mild relief. Patient denies any history of kidney stones. He denies any dysuria. (MARIANA ZHU DO) Review of Systems: Review of Systems: Constitutional: Denies fever or chills. [] Eyes: Denies change in visual acuity. [] HENT: Denies nasal congestion or sore throat. [] Respiratory: Denies cough or shortness of breath. [] Cardiovascular: Denies chest pain or edema. [] GI: Denies abdominal pain, nausea, vomiting, bloody stools or diarrhea. [] : Denies dysuria. [] Musculoskeletal: Positive back pain no joint pain. [] Integument: Denies rash. [] Neurologic: Denies headache, focal weakness or sensory changes. [] Endocrine: Denies polyuria or polydipsia. [] Lymphatic: Denies swollen glands. [] Psychiatric: Denies depression or anxiety. [] (MARIANA ZHU DO) Heart Score: C/O Chest Pain: N/A Risk Factors: Risk Factors: DM, Current or recent (<one month) smoker, HTN, HLP, family history of CAD, obesity. Risk Scores: Score 0 - 3: 2.5% MACE over next 6 weeks - Discharge Home Score 4 - 6: 20.3% MACE over next 6 weeks - Admit for Clinical Observation Score 7 - 10: 72.7% MACE over next 6 weeks - Early Invasive Strategies (MARIANA ZHU DO) Allergies: Allergies: Allergies Coded Allergies Type Severity Reaction Last Updated Verified No Known Drug Allergies 06/21/15 No (MARIANA ZHU DO) Physical Exam: PE: General: alert, no acute distress. Skin: warm, dry and intact. HENT: bilateral external ears normal, oropharynx moist, nose normal. Head:: Normocephalic, atraumatic. Neck: Trachea midline. Eyes: EOMI, Normal conjunctiva, No drainage CARDIOVASCULAR: Regular rate and rhythm RESPIRATORY: No respiratory distress Back: Creased range of motion due to pain in the right lower lumbar. No midline C-spine T-spine or lumbar tenderness step-off or deformities. Discomfort right paraspinal at the level of L2- L3-L4 Skin: Warm, dry, no erythema, no rash. MUSCULOSKELETAL: Full range of motion of bilateral upper and lower extremities. GASTROINTESTINAL: Abdomen soft without rebound or guarding. NEUROLOGICAL: Alert and noted to person, place and time. No neurological deficits observed no saddle anesthesia no loss of bowel or bladder Psychiatric: Cooperative. Normal judgment (MARIANA ZHU DO) EKG: EKG: [] (MARIANA ZHU DO) Radiology/Procedures: Radiology/Procedures: [] (MARIANA ZHU DO) Course & Med Decision Making: Course & Med Decision Making Pertinent Labs and Imaging studies reviewed. (See chart for details) []Patients Care and treatment plan provided by ER Nurse Practitioner. I was available for consult. Patient's chart reviewed. (MARIANA ZHU DO) Course & Med Decision Making Patient was seen and treated and released/discharge from the emergency department by ED attending physician Dr. Zhu on 09/14/2020, was given a handwritten prescription for 5/325 Shade count 20 tablets, the area pharmacies will not accept handwritten prescriptions, attending physician Dr. Zhu is unable to E-prescribe narcotic prescriptions at this time, ED attending physician Dr. Zhu asked that I E-prescribe this patient pain medication for his acute back pain and sent to local [facility] pharmacy on [address] in [facility]. Reviewed patient's chart, will E-prescribe this medication. (LÁZARO KERN APRN) Dragon Disclaimer: Dragon Disclaimer: This electronic medical record was generated, in whole or in part, using a voice recognition dictation system. (MARIANA ZHU DO) Departure Departure Impression: Primary Impression: Back pain Additional Impression: Lumbar strain Disposition: HOME / SELF CARE / HOMELESS Condition: STABLE Referrals: ANTWON KELLY (PCP) Patient Instructions: Back Pain, Adult Scripts Hydrocodone/Acetaminophen (Hydrocodone-Acetamin 5-325 mg) 1 Each Tablet 1 EACH PO Q6HRS, #14 TAB Prov: LÁZARO KERN APRN 09/15/20 Cyclobenzaprine Hcl (CYCLOBENZAPRINE HCL) 10 Mg Tablet 10 MG PO TID, #20 TAB Prov: MARIANA ZHU DO 09/14/20 MARIANA ZHU DO Sep 14, 2020 21:00 LÁZARO KERN APRN Sep 15, 2020 19:03
[2020-09-14 21:02] VITALS: BP 151/79
[2020-09-14 21:14] LABS: BILIRUBIN,URINE NEGATIVE (NEG); CLARITY,URINE CLEAR; COLOR,URINE YELLOW; NITRITE,URINE NEGATIVE (NEG); PH,URINE 5.5 (<5.0-8.0); PROTEIN,URINE NEGATIVE (NEG-TRACE)
[2020-09-14 21:23] LABS: BACTERIA,URINE FEW /HPF (0-FEW)
[2020-09-14] MEDS ORDERED: CYCLOBENZAPRINE 10 MG TABLET. PO ONE (21:30)
[2020-09-14] MEDS ORDERED: HYDROcodone/APAP 5/325MG 1 TAB TABLET PO ONE (21:30)
[2020-09-14] MEDS ORDERED: KETOROLAC 15 MG/ML VIAL. IM ONE (21:30)
[2020-09-15] MEDS ORDERED: HYDR-2759 PO (19:00)
== END 2020-09-14 21:42 | disposition home or self-care (01) ==
LOC: ER 16:45
DX: S39.012A Strain of muscle, fascia and tendon of lower back, initial encounter (principal); E11.9 Type 2 diabetes mellitus without complications; I10 Essential (primary) hypertension; X50.9XXA Other and unspecified overexertion or strenuous movements or postures, initial encounter; Y93.89 Activity, other specified; Y92.89 Other specified places as the place of occurrence of the external cause; Y99.8 Other external cause status
CPT/HCPCS: 81001; 96372; 99283; J1885

== ENCOUNTER 2021-05-31 20:24 | Observation (INO) | payer MEDICARE ==
[~2021-05-31] VITALS: Ht 167.6 cm; Wt 81.6 kg
[~2021-05-31 20:24] MED LIST changes: +CYCL10TA19 PO; +HYDR-2759 PO
--- NOTE | 2021-05-31 20:55 | PHYS DOC ---
Past Medical History Past Medical History: Diabetes-Type II, Hypertension Past Surgical History: Other Additional Past Surgical Histo: LEFT ARM Smoking Status: Never Smoker Alcohol Use: None Drug Use: None General Adult EDM: Chief Complaint: ABDOMINAL PAIN HPI: HPI: Patient is a 76-year-old male who presents to the emergency department for umbilical abdominal pain that started on Monday. Patient rates his pain 6 out of 10. He describes it as a stabbing pain. He reports that he had 1 episode of vomiting today. He denies any current nausea, diarrhea, urinary complaints, blood in his stools, fever, sick exposures, recent travel. Patient has a history of diabetes and hypertension. He denies any history of abdominal surgeries, alcohol use. He reports that his last bowel movement was on Monday. Review of Systems: Review of Systems: Constitutional: See HPI GI: See HPI : See HPI Heart Score: C/O Chest Pain: N/A Risk Factors: Risk Factors: DM, Current or recent (<one month) smoker, HTN, HLP, family history of CAD, obesity. Risk Scores: Score 0 - 3: 2.5% MACE over next 6 weeks - Discharge Home Score 4 - 6: 20.3% MACE over next 6 weeks - Admit for Clinical Observation Score 7 - 10: 72.7% MACE over next 6 weeks - Early Invasive Strategies Allergies: Allergies: Allergies Coded Allergies Type Severity Reaction Last Updated Verified No Known Drug Allergies 06/21/15 No Physical Exam: PE: Constitutional: Well developed, well nourished, no acute distress, non-toxic appearance. [] HENT: Normocephalic, atraumatic, bilateral external ears normal, oropharynx moist, no oral exudates, nose normal. [] Eyes: PERRL, EOMI, conjunctiva normal, no discharge. [] Neck: Normal range of motion, no stridor Cardiovascular:Heart rate regular rhythm, no murmur [] Lungs & Thorax: Bilateral breath sounds clear to auscultation [] Abdomen: Bowel sounds normal, soft, no tenderness, no abdominal guarding or rigidity, negative Bernard sign, no masses, no pulsatile masses. [] Skin: Warm, dry, no erythema, no rash. [] Back: Normal range of motion Extremities: No tenderness, no cyanosis, no clubbing, ROM intact, no edema. [] Neurologic: Alert and oriented X 3, normal motor function, normal sensory function, no focal deficits noted. [] Psychologic: Affect normal, judgement normal, mood normal. [] Current Patient Data: Labs: Laboratory Tests Test 05/31/21 21:11 05/31/21 21:51 White Blood Count 16.5 x10^3/uL Red Blood Count 4.16 x10^6/uL Hemoglobin 12.8 g/dL Hematocrit 37.2 % Mean Corpuscular Volume 89 fL Mean Corpuscular Hemoglobin 31 pg Mean Corpuscular Hemoglobin Concent 34 g/dL Red Cell Distribution Width 14.4 % Platelet Count 115 x10^3/uL Neutrophils (%) (Auto) 90 % Lymphocytes (%) (Auto) 2 % Monocytes (%) (Auto) 8 % Eosinophils (%) (Auto) 0 % Basophils (%) (Auto) 0 % Neutrophils # (Auto) 14.8 x10^3/uL Lymphocytes # (Auto) 0.3 x10^3/uL Monocytes # (Auto) 1.4 x10^3/uL Eosinophils # (Auto) 0.0 x10^3/uL Basophils # (Auto) 0.0 x10^3/uL Segmented Neutrophils % 85 % Band Neutrophils % 6 % Lymphocytes % 2 % Monocytes % 7 % Toxic Granulation Slight Dohle Bodies Present Platelet Estimate Decreased Sodium Level 139 mmol/L Potassium Level 2.8 mmol/L Chloride Level 99 mmol/L Carbon Dioxide Level 29 mmol/L Anion Gap 11 Blood Urea Nitrogen 37 mg/dL Creatinine 1.8 mg/dL Estimated GFR (Cockcroft-Gault) 44.7 BUN/Creatinine Ratio 21 Glucose Level 107 mg/dL Calcium Level 8.0 mg/dL Magnesium Level 2.8 mg/dL Total Bilirubin 1.0 mg/dL Aspartate Amino Transf (AST/SGOT) 20 U/L Alanine Aminotransferase (ALT/SGPT) 21 U/L Alkaline Phosphatase 100 U/L Troponin I High Sensitivity 48 ng/L Total Protein 6.4 g/dL Albumin 2.8 g/dL Albumin/Globulin Ratio 0.8 Lipase 23 U/L Urine Collection Type Unknown Urine Color (Auto) Light orange Urine Turbidity Hazy Urine pH (Auto) 5.5 Urine Specific [place] 1.009 Urine Protein (Auto) 30 mg/dL Urine Glucose (Auto)(UA) 500 mg/dL Urine Ketones (Auto) Negative mg/dL Urine Blood (Auto) Small Urine Nitrite Positive Urine Bilirubin (Auto) Negative Urine Urobilinogen (Auto) Normal mg/dL Urine Leukocyte Esterase (Auto) Large Urine RBC 3-5 /HPF Urine WBC Tntc /HPF Urine Squamous Epithelial Cells Few /LPF Urine Bacteria Many /HPF Urine Mucus Slight /LPF Current Medications Medications (Trade) Dose Ordered Sig/Francesco Route PRN Reason Start Time Stop Time Status Last Admin Dose Admin Sodium Chloride 1,000 ml @ 1,000 mls/hr Q1H IV 05/31/21 21:00 05/31/21 21:59 DC 05/31/21 21:14 Fentanyl Citrate (Fentanyl 2ml Vial) 50 mcg 1X ONCE IVP 05/31/21 21:00 05/31/21 21:01 DC 05/31/21 21:13 Vital Signs: Vital Signs Date Time Temp Pulse Resp B/P (MAP) Pulse Ox O2 Delivery O2 Flow Rate FiO2 05/31/21 20:25 98.4 18 149/72 (97) 95 Room Air 98.4 EKG: EKG: EKG performed by ER staff at 2032 shows sinus rhythm with a rate of 90, QTc of 417. No STEMI read by Dr. Lima at 2032 [] Radiology/Procedures: Radiology/Procedures: []OCEDURE: CT ABDOMEN PELVIS WO CONTRAST Examination: CT of the abdomen pelvis without contrast HISTORY: History of abdominal pain, vomiting, constipation COMPARISON: 11/07/2015 Technique: Axial CT images of the abdomen pelvis were performed without contrast. Coronal and sagittal reformats are performed Exposure: One or more of the following individualized dose reduction techniques were utilized for this examination: 1. Automated exposure control 2. Adjustment of the mA and/or kV according to patient size 3. Use of iterative reconstruction technique FINDINGS: Mild bibasilar lung atelectasis. No evidence of free air identified in the abdomen. The evaluation of the solid organs is limited due to lack of IV contrast. The evaluation of bowel is limited due to lack of oral contrast. Mild decreased attenuation noted in the liver likely hepatic steatosis. The spleen, adrenals grossly appears unremarkable. The gallbladder is mildly distended. The stomach is mildly distended. The visualized pancreas grossly appears unremarkable. The small bowel is nondilated. Feces and gas noted in the colon. The appendix is normal. The urinary bladder is mildly distended. Moderate fat stranding identified about the bilateral kidneys and bilateral ureters. Urinary bladder is mildly distended. Punctate 2 mm calculus right kidney. Mild degenerative changes thoracal lumbar spine. IMPRESSION: 1. Moderate fat stranding identified about the bilateral kidneys and bilateral ureters probably urinary tract infection/pyelonephritis. Correlate with lab values. 2. Punctate 2 mm calculus right kidney. 3. Mild hepatic steatosis. Electronically signed by: Bryan Crowley MD (05/31/2021 10:07 PM) [id number] DICTATED and SIGNED BY: BRYAN CROWLEY MD DATE: 05/31/212199 Course & Med Decision Making: Course & Med Decision Making Pertinent Labs and Imaging studies reviewed. (See chart for details) [] Patient presents to the emergency department for umbilical abdominal pain. Patient is also reporting that his last bowel movement was Monday. Patient does not have a history of abdominal surgeries. His work-up in the ER consisted of blood work including lipase, urinalysis and CT abdomen and pelvis to rule out obstruction as he is having abdominal pain, nausea, vomiting and constipation. Patient was noted to have a critically low potassium at 2.8 and this was replaced with IV and oral supplementation. Patient's QTC is not prolonged. Patient has a BUN of 37 and a creatinine of 1.8, this is elevated compared to previous lab values which were from 2017. Negative troponin, negative lipase. Patient's magnesium was 2.8. He had a white count of 16.5 and his urinalysis shows a urinary tract infection. His CT scan of his abdomen and pelvis showedModerate fat stranding identified about the bilateral kidneys and bilateral ureters consistent with pyelonephritis. Patient will be admitted for IV antibiotics. Patient will be admitted to Dr. Kincaid. ER bridge orders placed at this time 2213. I discussed these findings with patient and he is agreeable to admission. Cameron Disclaimer: Cameorn Disclaimer: This electronic medical record was generated, in whole or in part, using a voice recognition dictation system. Departure Departure Impression: Primary Impression: Pyelonephritis Additional Impression: Hypokalemia Disposition: ADMITTED INPATIENT Admitting Physician: PEPITO Condition: GOOD Referrals: ANTWON KELLY (PCP) JOHNNIE CHRISTOPHER APRN May 31, 2021 20:55
[2021-05-31] MEDS ORDERED: fentaNYL PF VIAL 100 MCG/2 ML VIAL IVP ONE (21:00)
[2021-05-31] MEDS ORDERED: IV NORMAL SALINE 1000ML BAG 1,000 ML IV SCH (21:00)
[2021-05-31 21:27] LABS: BASO % 0 % (0-3); EOS % 0 % (0-3); HEMATOCRIT 37.2 % (39.0-53.0); HEMOGLOBIN 12.8 g/dL (13.0-17.5); LYMPH # 0.3 x10^3/uL (1.0-4.8); LYMPH % 2 % (24-48); MEAN CORPUSCULAR HEMOGLOBIN 31 pg (25-35); MEAN CORPUSCULAR HGB CONC 34 g/dL (31-37); MEAN CORPUSCULAR VOLUME 89 fL (79-100); MONO # 1.4 x10^3/uL (0.0-1.1); MONO % 8 % (0-9); NEUT # 14.8 x10^3/uL (1.8-7.7); NEUT % 90 % (31-73); PLATELET COUNT 115 x10^3/uL (140-400); RED BLOOD COUNT 4.16 x10^6/uL (4.30-5.70); RED CELL DISTRIBUTION WIDTH 14.4 % (11.5-14.5); WHITE BLOOD COUNT 16.5 x10^3/uL (4.0-11.0)
[2021-05-31 21:40] LABS: ALBUMIN 2.8 g/dL (3.4-5.0); ALBUMIN/GLOBULIN RATIO 0.8 (1.0-1.7); CREATININE 1.8 mg/dL (0.7-1.3); GFR 44.7; TOTAL PROTEIN 6.4 g/dL (6.4-8.2)
[2021-05-31 21:42] LABS: POTASSIUM 2.8 mmol/L (3.5-5.1)
[2021-05-31 21:53] LABS: % BANDS 6 % (0-9); % LYMPHS 2 % (24-48); % MONOS 7 % (0-10); % SEGS 85 % (35-66); PLT ESTIMATE DECREASED (ADEQUATE)
[2021-05-31 21:55] LABS: TOXIC GRANULATION SLIGHT
[2021-05-31 22:06] LABS: BACTERIA,URINE MANY /HPF (0-FEW); WBC,URINE TNTC /HPF (0-4)
--- NOTE | 2021-05-31 22:09 | RAD ---
Examination: CT of the abdomen pelvis without contrast HISTORY: History of abdominal pain, vomiting, constipation COMPARISON: 11/07/2015 Technique: Axial CT images of the abdomen pelvis were performed without contrast. Coronal and sagitta l reformats are performed Exposure: One or more of the following individualized dose reduction techniques were utilized for thi s examination: 1. Automated exposure control 2. Adjustment of the mA and/or kV according to patient size 3. Use of iterative reconstruction technique FINDINGS: Mild bibasilar lung atelectasis. No evidence of free air identified in the abdomen. The evaluation of the solid organs is limited due to lack of IV contrast. The evaluation of bowel is limited due to lack of oral contrast. Mild decreased attenuation noted in the liver likely hepatic st eatosis. The spleen, adrenals grossly appears unremarkable. The gallbladder is mildly distended. The stomach is mildly distended. The visualized pancreas grossly appears unremarkable. The small bowel is nondilated. Feces and gas noted in the colon. The appendix is normal. The urinary bladder is mildly distended. Moderate fat stranding identified about the bilateral kidneys and bilateral ureters. Urinary bladder is mildly distended. Punctate 2 mm calculus right kidney. Mild degenerative changes thoracal lumbar spine. IMPRESSION: 1. Moderate fat stranding identified about the bilateral kidneys and bilateral ureters probably urin nettie tract infection/pyelonephritis. Correlate with lab values. 2. Punctate 2 mm calculus right kidney. 3. Mild hepatic steatosis. Electronically signed by: Bryan Crowley MD (05/31/2021 10:07 PM) [id number]
[2021-05-31] MEDS ORDERED: ONDANSETRON PF 4 MG/2 ML VIAL. IVP PRN (22:15)
[2021-05-31] MEDS ORDERED: MORPHINE SULFATE 2 MG/ML INJ. IVP PRN (22:15)
[2021-05-31] MEDS: IV NORMAL SALINE 1000ML BAG 1,000 ML IV SCH (22:40)
[2021-05-31] MEDS: POTASSIUM CHLORIDE 10MEQ 100 ML IV SCH (22:40)
[2021-05-31] MEDS ORDERED: cefTRIAXone IV Push 1 GM VIAL. IVP ONE (23:00)
[2021-05-31] MEDS ORDERED: POTASSIUM CHLORIDE 10 MEQ TABLET.ER. PO ONE (23:00)
[2021-05-31 23:59] VITALS: BP 130/72
[2021-06-01] MEDS: POTASSIUM CHLORIDE 10MEQ 100 ML IV SCH ×3 (00:17→02:06)
[2021-06-01] MEDS ORDERED: EMPA25TA3 PO (00:59)
[2021-06-01] MEDS ORDERED: AMLO-187 PO (00:59)
[2021-06-01] MEDS ORDERED: GLIP10TA13 PO (00:59)
[2021-06-01] MEDS ORDERED: LOSA-73 PO (00:59)
[2021-06-01] MEDS ORDERED: TAMS0.4C97 PO (00:59)
[2021-06-01] MEDS ORDERED: HYDR200T5 PO (00:59)
[2021-06-01] MEDS ORDERED: HYDR-2145 PO (00:59)
--- NOTE | 2021-06-01 02:41 | EKG ---
[facility] [address] [place] [address] Test Date: 2021-05-31 Test Time: 20:33:09 Pat Name: GRICELDA HERNANDEZ Department: Room: [facility] Gender: M [employer] Work[employer]: SHE : 1945 Requested By: JOHNNIE CHRISTOPHER Order Number: [id number] Reading MD: Jesus Kincaid Measurements Intervals [place] Rate: 90 P: 39 [place]: 170 QRS: -25 QRSD: 90 T: 32 QT: 338 QTc: 417 Interpretive Statements SINUS RHYTHM LEFT ATRIAL ABNORMALITY LEFTWARD AXIS ABNORMAL ECG RI6.02 Compared to ECG 06/21/2015 13:53:13 No significant changes Electronically Signed On 06-05-2021 21:47:20 CDT by Jesus Kincaid
[2021-06-01 03:05] VITALS: BP 152/68
[2021-06-01 07:00] VITALS: BP 148/76
[2021-06-01 08:23] LABS: BASO % 0 % (0-3); EOS % 0 % (0-3); HEMATOCRIT 36.3 % (39.0-53.0); HEMOGLOBIN 11.9 g/dL (13.0-17.5); LYMPH # 0.4 x10^3/uL (1.0-4.8); LYMPH % 3 % (24-48); MEAN CORPUSCULAR HEMOGLOBIN 30 pg (25-35); MEAN CORPUSCULAR HGB CONC 33 g/dL (31-37); MEAN CORPUSCULAR VOLUME 90 fL (79-100); MONO # 1.5 x10^3/uL (0.0-1.1); MONO % 11 % (0-9); NEUT # 11.3 x10^3/uL (1.8-7.7); NEUT % 85 % (31-73); PLATELET COUNT 117 x10^3/uL (140-400); RED BLOOD COUNT 4.06 x10^6/uL (4.30-5.70); RED CELL DISTRIBUTION WIDTH 14.6 % (11.5-14.5); WHITE BLOOD COUNT 13.2 x10^3/uL (4.0-11.0)
[2021-06-01 08:51] LABS: ALBUMIN 2.4 g/dL (3.4-5.0); ALBUMIN/GLOBULIN RATIO 0.6 (1.0-1.7); CALCIUM 8.3 mg/dL (8.5-10.1); CREATININE 1.6 mg/dL (0.7-1.3); GFR 51.2; POTASSIUM 3.1 mmol/L (3.5-5.1); TOTAL BILIRUBIN 0.7 mg/dL (0.2-1.0); TOTAL PROTEIN 6.6 g/dL (6.4-8.2)
[2021-06-01] MEDS ORDERED: ELECTROLYTE (NON-ICU) PROTOCOL. MC PRN (09:00)
[2021-06-01] MEDS ORDERED: PIP/TAZO PER PHARMACY MC PRN (09:00)
[2021-06-01] MEDS ORDERED: oxyCODONE/APAP 5/325 1 TAB TABLET PO PRN ×2 (09:00)
[2021-06-01] MEDS ORDERED: ONDANSETRON PF 4 MG/2 ML VIAL. IVP PRN (09:00)
[2021-06-01] MEDS ORDERED: CALCIUM CARBONATE 500 MG TAB.CHEW PO PRN (09:00)
[2021-06-01] MEDS ORDERED: ACETAMINOPHEN 325 MG TABLET. PO PRN (09:00)
[2021-06-01] MEDS: SENNOSIDES/DOCUSATE 8.6/50MG TABLET. PO SCH ×2 (09:21→22:32)
[2021-06-01] MEDS: hydroCHLOROthiazide 25 MG TABLET PO SCH (09:21)
[2021-06-01] MEDS: HYDROXYCHLOROQUINE 200 MG TABLET PO SCH (09:21)
[2021-06-01] MEDS: LOSARTAN POTASSIUM 50 MG TABLET. PO SCH (09:21)
[2021-06-01] MEDS: EMPAGLIFLOZIN 25 MG TABLET. PO SCH (09:21)
[2021-06-01] MEDS: TAMSULOSIN 0.4 MG CAP.ER.24H. PO SCH (09:21)
[2021-06-01] MEDS: IV NORMAL SALINE 1000ML BAG 1,000 ML IV SCH ×2 (09:22→22:32)
[2021-06-01] MEDS: HEPARIN for SUB-Q USE 5,000 UNIT/ML VIAL. SQ SCH ×2 (09:27→22:44)
--- NOTE | 2021-06-01 10:20 | PDOC1 ---
History and Physical Date of Service: DOS: DATE: 06/01/21 TIME: 10:16 Chief Complaint: Chief Complain: suprapubic pain History of Present Illness: HPI: 76-year-old -Turk[place] male presented to the emergency department overnight to 2 pillow: Suprapubic abdominal pain. Has been going on for 4 days. Is having difficulty with urinating and emptying his bladder. Says he feels like he always has the urge to urinate. Denying any hematuria. Some dysuria. History diabetes hypertension Past Medical/Surgical History: PMH/PSH: Past Medical History: Diabetes-Type II, Hypertension Past Surgical History: Other Additional Past Surgical Histo: LEFT ARM Smoking Status: Never Smoker Alcohol Use: None Drug Use: None Allergies: Allergies: Coded Allergies: metformin (Verified Adverse Reaction, Intermediate, VOMITING, 05/31/21) Family History: Family History: Diabetes Current Medications: Current Medications Current Medications Sodium Chloride 1,000 ml @ 1,000 mls/hr Q1H IV Last administered on 05/31/21at 21:14; Start 05/31/21 at 21:00; Stop 05/31/21 at 21:59; Status DC Fentanyl Citrate (Fentanyl 2ml Vial) 50 mcg 1X ONCE IVP Last administered on 05/31/21at 21:13; Start 05/31/21 at 21:00; Stop 05/31/21 at 21:01; Status DC Ceftriaxone Sodium (Rocephin) 1 gm 1X ONCE IVP Last administered on 05/31/21at 23:33; Start 05/31/21 at 23:00; Stop 05/31/21 at 23:01; Status DC Potassium Chloride/Water 100 ml @ 100 mls/hr Q1H IV Last administered on 06/01/21at 02:06; Start 05/31/21 at 23:00; Stop 06/01/21 at 02:59; Status DC Potassium Chloride (Klor-Con) 30 meq 1X ONCE PO Last administered on 05/31/21at 23:32; Start 05/31/21 at 23:00; Stop 05/31/21 at 23:01; Status DC Ondansetron HCl (Zofran) 4 mg PRN Q8HRS PRN IVP NAUSEA/VOMITING 1ST CHOICE; Start 05/31/21 at 22:15; Stop 06/01/21 at 22:14 Morphine Sulfate (Morphine Sulfate) 2 mg PRN Q2HR PRN IVP SEVERE PAIN 7-10; Start 05/31/21 at 22:15; Stop 06/01/21 at 22:14 Sodium Chloride 1,000 ml @ 100 mls/hr Q10H IV Last administered on 06/01/21at 09:22; Start 05/31/21 at 22:30; Stop 06/01/21 at 22:29 Piperacillin Sod/ Tazobactam Sod (Zosyn Per Pharmacy) 1 each PRN DAILY PRN MC SEE COMMENTS; Start 06/01/21 at 09:00 Amlodipine Besylate (Norvasc) 10 mg DAILY PO Last administered on 06/01/21at 09:21; Start 06/01/21 at 09:00 Empaglifozin (Jardiance) 25 mg DAILY PO Last administered on 06/01/21at 09:21; Start 06/01/21 at 09:00 Hydrochlorothiazide (Hydrodiuril) 25 mg DAILY PO Last administered on 06/01/21at 09:21; Start 06/01/21 at 09:00 Hydroxychloroquine Sulfate (Plaquenil) 200 mg DAILY PO Last administered on 06/01/21at 09:21; Start 06/01/21 at 09:00 Losartan Potassium (Cozaar) 50 mg DAILY PO Last administered on 06/01/21at 09:21; Start 06/01/21 at 09:00 Tamsulosin HCl (Flomax) 0.4 mg DAILY PO Last administered on 06/01/21at 09:21; Start 06/01/21 at 09:00 Ondansetron HCl (Zofran) 4 mg PRN Q6HRS PRN IVP NAUSEA/VOMITING; Start 06/01/21 at 09:00 Calcium Carbonate/ Glycine (Tums) 500 mg PRN Q3HRS PRN PO UPSET STOMACH; Start 06/01/21 at 09:00 Info (Non-Icu Electrolyte Protocol) 1 ea PRN DAILY PRN MC SEE COMMENTS; Start 06/01/21 at 09:00 Oxycodone/ Acetaminophen (Percocet 5/325) 1 tab PRN Q4HRS PRN PO MILD PAIN, 1ST CHOICE; Start 06/01/21 at 09:00 Oxycodone/ Acetaminophen (Percocet 5/325) 2 tab PRN Q4HRS PRN PO MODERATE PAIN, SEVERE PAIN; Start 06/01/21 at 09:00 Acetaminophen (Tylenol) 650 mg PRN Q6HRS PRN PO Headaches, Temp > 101.5F; Start 06/01/21 at 09:00 Senna/Docusate Sodium (Senna Plus) 1 tab BID PO Last administered on 06/01/21at 09:21; Start 06/01/21 at 09:00 Heparin Sodium (Porcine) (Heparin Sodium) 5,000 unit Q12HR SQ Last administered on 06/01/21at 09:27; Start 06/01/21 at 09:00 Piperacillin Sod/ Tazobactam Sod 3.375 gm/Sodium Chloride 50 ml @ 100 mls/hr Q6HRS IV ; Start 06/01/21 at 12:00 Active Scripts Active Reported Hydrochlorothiazide Tablet (Hydrochlorothiazide) 25 Mg Tablet 25 Mg PO DAILY Jardiance (Empaglifozin) 25 Mg Tablet 25 Mg PO DAILY Amlodipine Besylate 10 Mg Tablet 10 Mg PO DAILY Glipizide 10 Mg Tablet 1 Tab PO BID Flomax (Tamsulosin Hcl) 0.4 Mg Cap.er.24h 0.4 Mg PO DAILY Losartan Potassium 50 Mg Tablet 50 Mg PO DAILY Hydroxychloroquine Sulfate 200 Mg Tablet 200 Mg PO DAILY ROS: Review of Systems Review of System Unless noted in HPI 14 point review systems was negative Physical Exam: Vital Signs: Vital Signs Date Time Temp Pulse Resp B/P (MAP) Pulse Ox O2 Delivery O2 Flow Rate FiO2 06/01/21 09:21 77 148/76 06/01/21 08:00 Room Air 06/01/21 07:00 98.2 18 93 98.2 Physcial Exam: GEN: No apparent distress. Alert and oriented HEENT: Normal cephalic, atraumatic, external auditory canals are patent EYES: Extraocular muscles are intact, pupil are equally round and reactive to light and accommodation MUSCULOSKELETAL: Well developed , well nourished, good range of motion ENDOCRINE: No thyromegaly was palpated LYMPHATICS: No cervical chain or axillary nodes were noted HEMATOPOIETIC: No bruising NECK: Supple, no JVD, no thyromegaly was noted LUNGS: Clear to auscultation in all lung san without rhonchi or wheezing HEART: RRR, S!, S2 present. Peripheral pulses intact, no obvious murmurs noted ABDOMEN: Soft, nontender. Positive bowel sounds, no organomegaly, normal bowel sounds EXTREMITIES: Without clubbing, cyanosis, or edema. Pedal pulses intact. Negative Homans sign NEUROLOGIC: Normal speech and tone. A&O x 3, moves all extremities, no obvious focal deficits PSYCHIATRIC: Normal affect, normal mood. Stable SKIN: No ulcerations or rashes, good skin turgor, no jaundice VASCULAR: Good capillary refill, neurovascular bundle appears to be intact Labs: Labs: Laboratory Tests Test 05/31/21 21:11 05/31/21 21:51 06/01/21 06:30 White Blood Count 16.5 x10^3/uL (4.0-11.0) 13.2 x10^3/uL (4.0-11.0) Red Blood Count 4.16 x10^6/uL (4.30-5.70) 4.06 x10^6/uL (4.30-5.70) Hemoglobin 12.8 g/dL (13.0-17.5) 11.9 g/dL (13.0-17.5) Hematocrit 37.2 % (39.0-53.0) 36.3 % (39.0-53.0) Mean Corpuscular Volume 89 fL (79-100) 90 fL (79-100) Mean Corpuscular Hemoglobin 31 pg (25-35) 30 pg (25-35) Mean Corpuscular Hemoglobin Concent 34 g/dL (31-37) 33 g/dL (31-37) Red Cell Distribution Width 14.4 % (11.5-14.5) 14.6 % (11.5-14.5) Platelet Count 115 x10^3/uL (140-400) 117 x10^3/uL (140-400) Neutrophils (%) (Auto) 90 % (31-73) 85 % (31-73) Lymphocytes (%) (Auto) 2 % (24-48) 3 % (24-48) Monocytes (%) (Auto) 8 % (0-9) 11 % (0-9) Eosinophils (%) (Auto) 0 % (0-3) 0 % (0-3) Basophils (%) (Auto) 0 % (0-3) 0 % (0-3) Neutrophils # (Auto) 14.8 x10^3/uL (1.8-7.7) 11.3 x10^3/uL (1.8-7.7) Lymphocytes # (Auto) 0.3 x10^3/uL (1.0-4.8) 0.4 x10^3/uL (1.0-4.8) Monocytes # (Auto) 1.4 x10^3/uL (0.0-1.1) 1.5 x10^3/uL (0.0-1.1) Eosinophils # (Auto) 0.0 x10^3/uL (0.0-0.7) 0.0 x10^3/uL (0.0-0.7) Basophils # (Auto) 0.0 x10^3/uL (0.0-0.2) 0.0 x10^3/uL (0.0-0.2) Segmented Neutrophils % 85 % (35-66) Band Neutrophils % 6 % (0-9) Lymphocytes % 2 % (24-48) Monocytes % 7 % (0-10) Toxic Granulation Slight Dohle Bodies Present Platelet Estimate Decreased (ADEQUATE) Sodium Level 139 mmol/L (136-145) 139 mmol/L (136-145) Potassium Level 2.8 mmol/L (3.5-5.1) 3.1 mmol/L (3.5-5.1) Chloride Level 99 mmol/L (98-107) 103 mmol/L (98-107) Carbon Dioxide Level 29 mmol/L (21-32) 25 mmol/L (21-32) Anion Gap 11 (6-14) 11 (6-14) Blood Urea Nitrogen 37 mg/dL (8-26) 34 mg/dL (8-26) Creatinine 1.8 mg/dL (0.7-1.3) 1.6 mg/dL (0.7-1.3) Estimated GFR (Cockcroft-Gault) 44.7 51.2 BUN/Creatinine Ratio 21 (6-20) 21 (6-20) Glucose Level 107 mg/dL (70-99) 109 mg/dL (70-99) Calcium Level 8.0 mg/dL (8.5-10.1) 8.3 mg/dL (8.5-10.1) Magnesium Level 2.8 mg/dL (1.8-2.4) Total Bilirubin 1.0 mg/dL (0.2-1.0) 0.7 mg/dL (0.2-1.0) Aspartate Amino Transf (AST/SGOT) 20 U/L (15-37) 19 U/L (15-37) Alanine Aminotransferase (ALT/SGPT) 21 U/L (16-63) 19 U/L (16-63) Alkaline Phosphatase 100 U/L (46-116) 95 U/L (46-116) Troponin I High Sensitivity 48 ng/L (4-75) Total Protein 6.4 g/dL (6.4-8.2) 6.6 g/dL (6.4-8.2) Albumin 2.8 g/dL (3.4-5.0) 2.4 g/dL (3.4-5.0) Albumin/Globulin Ratio 0.8 (1.0-1.7) 0.6 (1.0-1.7) Lipase 23 U/L (73-393) Urine Collection Type Unknown Urine Color (Auto) Light orange Urine Turbidity Hazy Urine pH (Auto) 5.5 (<5.0-8.0) Urine Specific [place] 1.009 (1.000-1.030) Urine Protein (Auto) 30 mg/dL (Negative) Urine Glucose (Auto)(UA) 500 mg/dL (Negative) Urine Ketones (Auto) Negative mg/dL (Negative) Urine Blood (Auto) Small (Negative) Urine Nitrite Positive (Negative) Urine Bilirubin (Auto) Negative (Negative) Urine Urobilinogen (Auto) Normal mg/dL (Normal) Urine Leukocyte Esterase (Auto) Large (Negative) Urine RBC 3-5 /HPF (0-2) Urine WBC Tntc /HPF (0-4) Urine Squamous Epithelial Cells Few /LPF Urine Bacteria Many /HPF (0-FEW) Urine Mucus Slight /LPF Laboratory Tests Test 05/31/21 21:11 05/31/21 21:51 06/01/21 06:30 White Blood Count 16.5 x10^3/uL (4.0-11.0) 13.2 x10^3/uL (4.0-11.0) Red Blood Count 4.16 x10^6/uL (4.30-5.70) 4.06 x10^6/uL (4.30-5.70) Hemoglobin 12.8 g/dL (13.0-17.5) 11.9 g/dL (13.0-17.5) Hematocrit 37.2 % (39.0-53.0) 36.3 % (39.0-53.0) Mean Corpuscular Volume 89 fL (79-100) 90 fL (79-100) Mean Corpuscular Hemoglobin 31 pg (25-35) 30 pg (25-35) Mean Corpuscular Hemoglobin Concent 34 g/dL (31-37) 33 g/dL (31-37) Red Cell Distribution Width 14.4 % (11.5-14.5) 14.6 % (11.5-14.5) Platelet Count 115 x10^3/uL (140-400) 117 x10^3/uL (140-400) Neutrophils (%) (Auto) 90 % (31-73) 85 % (31-73) Lymphocytes (%) (Auto) 2 % (24-48) 3 % (24-48) Monocytes (%) (Auto) 8 % (0-9) 11 % (0-9) Eosinophils (%) (Auto) 0 % (0-3) 0 % (0-3) Basophils (%) (Auto) 0 % (0-3) 0 % (0-3) Neutrophils # (Auto) 14.8 x10^3/uL (1.8-7.7) 11.3 x10^3/uL (1.8-7.7) Lymphocytes # (Auto) 0.3 x10^3/uL (1.0-4.8) 0.4 x10^3/uL (1.0-4.8) Monocytes # (Auto) 1.4 x10^3/uL (0.0-1.1) 1.5 x10^3/uL (0.0-1.1) Eosinophils # (Auto) 0.0 x10^3/uL (0.0-0.7) 0.0 x10^3/uL (0.0-0.7) Basophils # (Auto) 0.0 x10^3/uL (0.0-0.2) 0.0 x10^3/uL (0.0-0.2) Segmented Neutrophils % 85 % (35-66) Band Neutrophils % 6 % (0-9) Lymphocytes % 2 % (24-48) Monocytes % 7 % (0-10) Toxic Granulation Slight Dohle Bodies Present Platelet Estimate Decreased (ADEQUATE) Sodium Level 139 mmol/L (136-145) 139 mmol/L (136-145) Potassium Level 2.8 mmol/L (3.5-5.1) 3.1 mmol/L (3.5-5.1) Chloride Level 99 mmol/L (98-107) 103 mmol/L (98-107) Carbon Dioxide Level 29 mmol/L (21-32) 25 mmol/L (21-32) Anion Gap 11 (6-14) 11 (6-14) Blood Urea Nitrogen 37 mg/dL (8-26) 34 mg/dL (8-26) Creatinine 1.8 mg/dL (0.7-1.3) 1.6 mg/dL (0.7-1.3) Estimated GFR (Cockcroft-Gault) 44.7 51.2 BUN/Creatinine Ratio 21 (6-20) 21 (6-20) Glucose Level 107 mg/dL (70-99) 109 mg/dL (70-99) Calcium Level 8.0 mg/dL (8.5-10.1) 8.3 mg/dL (8.5-10.1) Magnesium Level 2.8 mg/dL (1.8-2.4) Total Bilirubin 1.0 mg/dL (0.2-1.0) 0.7 mg/dL (0.2-1.0) Aspartate Amino Transf (AST/SGOT) 20 U/L (15-37) 19 U/L (15-37) Alanine Aminotransferase (ALT/SGPT) 21 U/L (16-63) 19 U/L (16-63) Alkaline Phosphatase 100 U/L (46-116) 95 U/L (46-116) Troponin I High Sensitivity 48 ng/L (4-75) Total Protein 6.4 g/dL (6.4-8.2) 6.6 g/dL (6.4-8.2) Albumin 2.8 g/dL (3.4-5.0) 2.4 g/dL (3.4-5.0) Albumin/Globulin Ratio 0.8 (1.0-1.7) 0.6 (1.0-1.7) Lipase 23 U/L (73-393) Urine Collection Type Unknown Urine Color (Auto) Light orange Urine Turbidity Hazy Urine pH (Auto) 5.5 (<5.0-8.0) Urine Specific [place] 1.009 (1.000-1.030) Urine Protein (Auto) 30 mg/dL (Negative) Urine Glucose (Auto)(UA) 500 mg/dL (Negative) Urine Ketones (Auto) Negative mg/dL (Negative) Urine Blood (Auto) Small (Negative) Urine Nitrite Positive (Negative) Urine Bilirubin (Auto) Negative (Negative) Urine Urobilinogen (Auto) Normal mg/dL (Normal) Urine Leukocyte Esterase (Auto) Large (Negative) Urine RBC 3-5 /HPF (0-2) Urine WBC Tntc /HPF (0-4) Urine Squamous Epithelial Cells Few /LPF Urine Bacteria Many /HPF (0-FEW) Urine Mucus Slight /LPF Assessment/Plan Assessment/Plan Pyelonephritis urinary tract infection. History diabetes hypertension -Admit for IV antibiotics -Start IV Zosyn for today. -If continued improvement can switch to orals probably tomorrow -Home meds as indicated -DVT prophylaxis 20 minutes advance care planning he is a full code Justifications for Admission Other Justification UMER MAYERS MD Jun 01, 2021 10:20
[2021-06-01] MEDS ORDERED: POTASSIUM CHLORIDE 20 MEQ TABLET.ER. PO ONE (10:30)
[2021-06-01 11:00] VITALS: BP 108/69
[2021-06-01] MEDS: PIPERACILLIN/TAZOBACTAM 3.375 GM in IV NORMAL SALINE 50ML 50 ML IV SCH ×2 (11:37→17:41)
[2021-06-01 15:00] VITALS: BP 138/79
--- NOTE | 2021-06-01 15:58 | NUR ---
SS following for discharge planning. SS reviewed pt chart and discussed with pt RN. Pt is from home with spouse and is currently on room air. Pt on IV Zosyn. SS will continue to follow for discharge planning.
[2021-06-01] MEDS ORDERED: POLYETHYLENE GLYCOL 3350 17 GM PACKET. PO PRN (16:30)
[2021-06-01 19:00] VITALS: BP 158/77
[2021-06-01] MEDS: LACTOBACILLUS RHAMNOSUS GG 1 CAPSULE. PO SCH (22:32)
[2021-06-01 23:19] VITALS: BP 121/62
[2021-06-02] MEDS: PIPERACILLIN/TAZOBACTAM 3.375 GM in IV NORMAL SALINE 50ML 50 ML IV SCH ×2 (00:41→06:19)
[2021-06-02 03:29] VITALS: BP 133/69
[2021-06-02 07:00] VITALS: BP 138/77
[2021-06-02] MEDS: HEPARIN for SUB-Q USE 5,000 UNIT/ML VIAL. SQ SCH (09:00)
[2021-06-02 09:18] VITALS: BP 138/77
[2021-06-02] MEDS: SENNOSIDES/DOCUSATE 8.6/50MG TABLET. PO SCH (09:18)
[2021-06-02] MEDS: TAMSULOSIN 0.4 MG CAP.ER.24H. PO SCH (09:18)
[2021-06-02] MEDS: EMPAGLIFLOZIN 25 MG TABLET. PO SCH (09:18)
[2021-06-02] MEDS: LOSARTAN POTASSIUM 50 MG TABLET. PO SCH (09:18)
[2021-06-02] MEDS: LACTOBACILLUS RHAMNOSUS GG 1 CAPSULE. PO SCH (09:18)
[2021-06-02] MEDS: hydroCHLOROthiazide 25 MG TABLET PO SCH (09:18)
[2021-06-02] MEDS: HYDROXYCHLOROQUINE 200 MG TABLET PO SCH (09:20)
[2021-06-02] MEDS ORDERED: LEVO750T5 PO (09:45)
--- NOTE | 2021-06-02 09:47 | PDOC3 ---
[facility]-Discharge Summary Date of Admission: Date of Admission: Jun 01, 2021 Date of Discharge: Date of Discharge: Jun 02, 2021 Admission Diagnosis: Admitting Diagnosis: pyelo Hospital Course: Hospital Course: 76-year-old -[place]onegas[place] male presented to the emergency department overnight to 2 pillow: Suprapubic abdominal pain. Has been going on for 4 days. Is having difficulty with urinating and emptying his bladder. Says he feels like he always has the urge to urinate. Denying any hematuria. Some dysuria. History diabetes hypertension 06/02 Patient treated with IV Zosyn for the first 24 hours. today he was doing well resting in bed no complaints. Switch over to oral antibiotics Levaquin to complete outpatient. Discharge home today. Discussed with bedside RN. Greater than 30 minutes spent on this discharge. Disposition: Disposition/Orders: D/C to Home Activity: Activity: Resume previous activity Diet: Diet: Regular Medications: Home Meds Active Scripts Levofloxacin (LEVOFLOXACIN) 750 Mg Tablet, 750 MG PO DAILY06 for pyelonephritis for 7 Days, #7 TAB Prov:UMER MAYERS MD 06/02/21 Reported Medications Hydrochlorothiazide (HYDROCHLOROTHIAZIDE TABLET ) 25 Mg Tablet, 25 MG PO DAILY for DIURETIC, TAB 0 Refills 06/01/21 Empagliflozin (JARDIANCE) 25 Mg Tablet, 25 MG PO DAILY for Type 2 diabetes, TAB 06/01/21 Amlodipine Besylate (AMLODIPINE BESYLATE) 10 Mg Tablet, 10 MG PO DAILY for blood pressure, TAB 06/01/21 Glipizide (GLIPIZIDE) 10 Mg Tablet, 1 TAB PO BID for diabetes, #60 TAB 5 Refills 06/01/21 Tamsulosin Hcl (FLOMAX) 0.4 Mg Cap.er.24h, 0.4 MG PO DAILY for prostate, TAB 06/01/21 Losartan Potassium (LOSARTAN POTASSIUM) 50 Mg Tablet, 50 MG PO DAILY for HYPERTENSION, TAB 06/01/21 Hydroxychloroquine Sulfate (HYDROXYCHLOROQUINE SULFATE) 200 Mg Tablet, 200 MG PO DAILY for , TAB 06/01/21 Scheduled Amlodipine Besylate (Amlodipine Besylate), 10 MG PO DAILY, (Reported) Empagliflozin (Jardiance), 25 MG PO DAILY, (Reported) Glipizide (Glipizide), 1 TAB PO BID, (Reported) Hydrochlorothiazide (Hydrochlorothiazide Tablet ), 25 MG PO DAILY, (Reported) Hydroxychloroquine Sulfate (Hydroxychloroquine Sulfate), 200 MG PO DAILY, (Reported) Levofloxacin (Levofloxacin), 750 MG PO DAILY06 Losartan Potassium (Losartan Potassium), 50 MG PO DAILY, (Reported) Tamsulosin Hcl (Flomax), 0.4 MG PO DAILY, (Reported) Justicifation of Admission Dx: Justifications for Admission: Justification of Admission Dx: Yes (pyelonephritis) UMER MAYERS MD Jun 02, 2021 09:47
--- NOTE | 2021-06-02 10:38 | NUR ---
Discharge Note: GRICELDA HERNANDEZ Discharge instructions and discharge home medications reviewed with Patient and a copy given. All questions have been answered and understanding verbalized. The following instructions and handouts were given: discharge instructions, new prescription, education and follow up recommendation. Discontinued lines and drains: Peripheral IV discontinued intact. Patient discharged to Home or Self Care with Family Member via Ambulated off unit by THERMAL MOLDER.
== END 2021-06-02 10:37 | disposition home or self-care (01) ==
LOC: ER 20:24 → INTOOBSV 22:25 → 5 NORTH 22:25
PROVIDERS: ADMIT Student in an Organized Health Care Education/Training Program; ATTEND Student in an Organized Health Care Education/Training Program
DX: N10 Acute pyelonephritis (principal); N39.0 Urinary tract infection, site not specified; I10 Essential (primary) hypertension; E11.9 Type 2 diabetes mellitus without complications; E87.6 Hypokalemia; K76.0 Fatty (change of) liver, not elsewhere classified; N12 Tubulo-interstitial nephritis, not specified as acute or chronic; N20.0 Calculus of kidney
CPT/HCPCS: 36415; 74176; 80053; 81001; 83690; 83735; 84484; 85007; 85025; 87077; 87086; 87186; 93005; 96361; 96365; 96366; 96367; 96372; 96375; 99285; G0378; J0696; J1644; J2543; J3010; J3480; J7030; 96374; G0379